=== PATIENT | male | born 1995 | race African-American/Black ===

== ENCOUNTER 2016-07-17 10:38 | Emergency (ER) | payer OTHER ==
[2016-07-17] MEDS ORDERED: ONDANSETRON 4 MG ORAL DISINTEGRATING TAB (S0181) As Ordered ONE (10:59)
--- NOTE | 2016-07-17 11:09 | EDDOCDS ---
Physician Documentation [facility] Name: Nicolás Cordero Age: 21 yrs Sex: Male : 1995 Arrival Date: 07/17/2016 Time: 10:38 Bed TR7 Private MD: [facility] Disposition: 07/17/16 10:58 Discharged to Home/Self Care. Impression: Nausea and vomiting, Diarrhea, unspecified. - Condition is Stable. - Discharge Instructions: Viral Gastroenteritis, [id number]. - Prescriptions for ZOFRAN ODT 4 mg - dissolve 1 tablet by ORAL route 4 times per day As needed do not chew, do not swallow whole; 10 tablet. - Medication Reconciliation, Local Pharmacy Hours form. - Follow up: [facility]; When: 2 - 3 days; Reason: Further diagnostic work-up, Recheck today's complaints, Continuance of care. - Problem is new. - Symptoms are unchanged. Historical: - Allergies: no known allergies; - Home Meds: 1. none - PMHx: none; - PSHx: none; - Social history: Smoking status: Patient states was never smoker of tobacco. No barriers to communication noted, The patient speaks fluent Djiboutian, Speaks appropriately for age. - Family history: Not pertinent. - : The pt / caregiver states he / she is not on anticoagulants. Home medication list is obtained from the patient. - Exposure Risk Screening:: None identified. Vital Signs: 07/17 10:41 Pulse 90; Resp 18; Temp 96.8(T); Pulse Ox 100% on R/A; Weight 73.94 kg / 163.01 lbs nb2 (R); Height 5 ft. 4 in. (162.56 cm) (R); Pain 8/10; 10:41 Body Mass Index 27.98 (73.94 kg, 162.56 cm) nb2 MDM: 10:56 Ondansetron ODT Oral Disintegrating Tablet 4 mg PO once ordered. btw 11:03 Financial registration complete. [email or web address] Administered Medications: 11:00 Drug: Ondansetron ODT 4 mg [ondansetron 4 mg disintegrating tablet (1 tabs)] Route: PO; srm Signatures: Dayana Ardon RN RN Zafar Manzo PA PA btw Carrie Jean RN RN dsf Ivon Lee, Reg Reg [email or web address] MTDD
--- NOTE | 2016-07-17 11:09 | EDDOCDS ---
Nurse's Notes [facility] Name: Nicolás Cordero Age: 21 yrs Sex: Male : 1995 Arrival Date: 07/17/2016 Time: 10:38 Bed TR7 Private MD: [facility] Diagnosis: Nausea and vomiting;Diarrhea, unspecified Presentation: 07/17 10:52 Presenting complaint: Patient states: this morning woke up with n/v/d and abdominal dsf pain. Adult Sepsis Screening: The patient does not have new or worsening altered mentation. Patient's respiratory rate is less than 22. Systolic blood pressure is greater than 100. Patient has a qSOFA score of 0- Negative Sepsis Screen. Suicide/Homicide risk assessment- the patient denies having any suicidal and/or homicidal ideations and does not present with any other emotional, behavioral or mental health complaints. 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 Transition of care: patient was not received from another setting of care. 10:52 Acuity: MICHAELLE Level 3 dsf 10:52 Method Of Arrival: Walkin/Carried/Asstd dsf Triage Assessment: 10:53 General: Appears uncomfortable, Behavior is appropriate for age, cooperative. Pain: dsf Location: abdomen Pain currently is 8 out of 10 on a pain scale. Quality of pain is described as aching, sharp, Pain began this morning. 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 GI: Reports diarrhea, nausea, vomiting, Pain is 8 out of 10 on a pain scale. Historical: - Allergies: no known allergies; - Home Meds: 1. none - PMHx: none; - PSHx: none; - Social history: Smoking status: Patient states was never smoker of tobacco. No barriers to communication noted, The patient speaks fluent South Sudanese, Speaks appropriately for age. - Family history: Not pertinent. - : The pt / caregiver states he / she is not on anticoagulants. Home medication list is obtained from the patient. - Exposure Risk Screening:: None identified. Screenin:06 Screening information is obtained from the patient. Fall risk: No risks identified. srm Assistance ADL's: requires no assistance with activities of daily living. Abuse/DV Screen: The patient / caregiver reports he/she is: not in a situation that causes fear, pain or injury. Nutritional screening: No deficits noted. Advance Directives: There is no active DNR order. home support is adequate. Assessment: 11:06 General: Appears uncomfortable, Behavior is appropriate for age, cooperative. srm Respiratory: No deficits noted. GI: other bile vomitus in his mop bucket Reports nausea, vomiting. Derm: No deficits noted. Vital Signs: 10:41 Pulse 90; Resp 18; Temp 96.8(T); Pulse Ox 100% on R/A; Weight 73.94 kg (R); Height 5 nb2 ft. 4 in. (162.56 cm) (R); Pain 8/10; 10:41 Body Mass Index 27.98 (73.94 kg, 162.56 cm) 2 Vitals: 10:41 Log In Time: July 17, 2016 at 10:33. nb2 ED Course: 10:39 Patient visited by Neyda Ervin. nb2 10:39 [facility] is Private Physician. nb2 10:39 Patient moved to Waiting nb2 10:44 Patient visited by Neyda Ervin. nb2 10:45 Patient moved to Pre RCE nb2 10:52 Triage Initiated dsf 10:54 Zafar Fay PA is PHCP. btw 10:54 Daksha Quinn MD is Attending Physician. btw 10:54 Patient visited by Zafar Fay PA. btw 10:54 Patient moved to Triage 2 dsf 10:58 [facility] is Referral Physician. btw 11:04 Patient moved to 7 ct3 11:06 Patient name changed from Nicolás\S\\S\Cordero\S\ to Nicolás\S\ \S\Cordero. EDMS 11:06 The patient / caregiver is instructed regarding the plan of care and ED course. srm Accompanied by Friend, Patient has correct armband on for positive identification. 11:06 No IV's were initiated during this patient's visit. No procedures done that require srm assistance. Administered Medications: 11:00 Drug: Ondansetron ODT 4 mg [ondansetron 4 mg disintegrating tablet (1 tabs)] Route: PO; srm Order Results: There are currently no results for this order. Outcome: 10:58 Discharge ordered by Provider. btw 11:06 Discharge Assessment: Patient awake, alert and oriented x 3. No cognitive and/or srm functional deficits noted. Patient verbalized understanding of disposition instructions. patient administered narcotics - no. The following High Risk Discharge criteria are identified: None. Discharged to home ambulatory, with friend. Condition: stable. Discharge instructions given to patient, Instructed on discharge instructions, follow up and referral plans. medication usage, diet, Demonstrated understanding of instructions, medications, Pt was receptive of discharge instructions/ teaching. Prescriptions given X 1. No special radiology studies were completed. Property :Personal belongings accompany Pt. 11:08 Patient left the ED. srm Signatures: Dispatcher [employer] EDMS Dayana rAdon, RN RN Zafar Manzo PA PA btw Natty Amezquita, DOCK CLERK DOCK CLERK ct3 Carrie JeanRN RN Neyda Berry nb2 MTDD
--- NOTE | 2016-07-19 12:09 | EDDOCDS ---
Nurse's Notes [facility] Name: Nicolás Cordero Age: 21 yrs Sex: Male : 1995 Arrival Date: 07/17/2016 Time: 10:38 Bed TR7 [facility] Diagnosis: Nausea and vomiting;Diarrhea, unspecified Presentation: 07/17 10:52 Presenting complaint: Patient states: this morning woke up with n/v/d and abdominal dsf pain. Adult Sepsis Screening: The patient does not have new or worsening altered mentation. Patient's respiratory rate is less than 22. Systolic blood pressure is greater than 100. Patient has a qSOFA score of 0- Negative Sepsis Screen. Suicide/Homicide risk assessment- the patient denies having any suicidal and/or homicidal ideations and does not present with any other emotional, behavioral or mental health complaints. 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 Transition of care: patient was not received from another setting of care. 10:52 Acuity: MICHAELLE Level 3 dsf 10:52 Method Of Arrival: Walkin/Carried/Asstd dsf Triage Assessment: 10:53 General: Appears uncomfortable, Behavior is appropriate for age, cooperative. Pain: dsf Location: abdomen Pain currently is 8 out of 10 on a pain scale. Quality of pain is described as aching, sharp, Pain began this morning. 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 GI: Reports diarrhea, nausea, vomiting, Pain is 8 out of 10 on a pain scale. Historical: - Allergies: no known allergies; - Home Meds: 1. none - PMHx: none; - PSHx: none; - Social history: Smoking status: Patient states was never smoker of tobacco. No barriers to communication noted, The patient speaks fluent Tunisian, Speaks appropriately for age. - Family history: Not pertinent. - : The pt / caregiver states he / she is not on anticoagulants. Home medication list is obtained from the patient. - Exposure Risk Screening:: None identified. Screenin:06 Screening information is obtained from the patient. Fall risk: No risks identified. srm Assistance ADL's: requires no assistance with activities of daily living. Abuse/DV Screen: The patient / caregiver reports he/she is: not in a situation that causes fear, pain or injury. Nutritional screening: No deficits noted. Advance Directives: There is no active DNR order. home support is adequate. Assessment: 11:06 General: Appears uncomfortable, Behavior is appropriate for age, cooperative. srm Respiratory: No deficits noted. GI: other bile vomitus in his mop bucket Reports nausea, vomiting. Derm: No deficits noted. Vital Signs: 10:41 Pulse 90; Resp 18; Temp 96.8(T); Pulse Ox 100% on R/A; Weight 73.94 kg (R); Height 5 nb2 ft. 4 in. (162.56 cm) (R); Pain 8/10; 10:41 Body Mass Index 27.98 (73.94 kg, 162.56 cm) 2 Vitals: 10:41 Log In Time: July 17, 2016 at 10:33. nb2 ED Course: 10:39 Patient visited by Neyda Ervin. nb2 10:39 [facility] is Private Physician. nb2 10:39 Patient moved to Waiting nb2 10:44 Patient visited by Neyda Ervin. nb2 10:45 Patient moved to Pre RCE nb2 10:52 Triage Initiated dsf 10:54 Zafar Fay PA is PHCP. btw 10:54 Daksha Quinn MD is Attending Physician. btw 10:54 Patient visited by Zafar Fay PA. btw 10:54 Patient moved to Triage 2 dsf 10:58 [facility] is Referral Physician. btw 11:04 Patient moved to TR7 ct3 11:06 Patient name changed from Nicolás\S\\S\Cordero\S\ to Nicolás\S\ \S\Cordero. EDMS 11:06 The patient / caregiver is instructed regarding the plan of care and ED course. srm Accompanied by Friend, Patient has correct armband on for positive identification. 11:06 No IV's were initiated during this patient's visit. No procedures done that require srm assistance. 11:09 [facility] Payment Agreement was scanned into [employer] and attached to record. [email or web address] 13:55 T-Sheet-- Draft Copy was scanned into [employer] and attached to record. gb Administered Medications: 11:00 Drug: Ondansetron ODT 4 mg [ondansetron 4 mg disintegrating tablet (1 tabs)] Route: PO; srm Order Results: There are currently no results for this order. Outcome: 10:58 Discharge ordered by Provider. btw 11:06 Discharge Assessment: Patient awake, alert and oriented x 3. No cognitive and/or srm functional deficits noted. Patient verbalized understanding of disposition instructions. patient administered narcotics - no. The following High Risk Discharge criteria are identified: None. Discharged to home ambulatory, with friend. Condition: stable. Discharge instructions given to patient, Instructed on discharge instructions, follow up and referral plans. medication usage, diet, Demonstrated understanding of instructions, medications, Pt was receptive of discharge instructions/ teaching. Prescriptions given X 1. No special radiology studies were completed. Property :Personal belongings accompany Pt. 11:08 Patient left the ED. srm Signatures: Dispatcher [employer] EDMS Dayana Ardon, RN RN Jacquelin Young, Reg Reg gb Zafar Fay PA PA btw Natty Amezquita, PHYSICAL THERAPIST TECHNICIAN PHYSICAL THERAPIST TECHNICIAN ct3 Carrie JeanRN RN Ivon Youssef, Reg Reg ks16 Neyda Ervin2 Chart Complete JUNE
--- NOTE | 2016-07-19 12:09 | EDDOCDS ---
Physician Documentation [facility] Name: Nicolás Cordero Age: 21 yrs Sex: Male : 1995 Arrival Date: 07/17/2016 Time: 10:38 Bed TR7 [facility] Disposition: 07/17/16 10:58 Discharged to Home/Self Care. Impression: Nausea and vomiting, Diarrhea, unspecified. - Condition is Stable. - Discharge Instructions: Viral Gastroenteritis, [id number]. - Prescriptions for ZOFRAN ODT 4 mg - dissolve 1 tablet by ORAL route 4 times per day As needed do not chew, do not swallow whole; 10 tablet. - Medication Reconciliation, Local Pharmacy Hours form. - [facility]; When: 2 - 3 days; Reason: Further diagnostic work-up, Recheck today's complaints, Continuance of care. - Problem is new. - Symptoms are unchanged. Historical: - Allergies: no known allergies; - Home Meds: 1. none - PMHx: none; - PSHx: none; - Social history: Smoking status: Patient states was never smoker of tobacco. No barriers to communication noted, The patient speaks fluent Barbadian, Speaks appropriately for age. - Family history: Not pertinent. - : The pt / caregiver states he / she is not on anticoagulants. Home medication list is obtained from the patient. - Exposure Risk Screening:: None identified. Vital Signs: 07/17 10:41 Pulse 90; Resp 18; Temp 96.8(T); Pulse Ox 100% on R/A; Weight 73.94 kg / 163.01 lbs nb2 (R); Height 5 ft. 4 in. (162.56 cm) (R); Pain 8/10; 10:41 Body Mass Index 27.98 (73.94 kg, 162.56 cm) nb2 MDM: 10:56 Ondansetron ODT Oral Disintegrating Tablet 4 mg PO once ordered. btw 11:03 Financial registration complete. [email or web address] 11:09 [facility] Payment Agreement was scanned into [employer] and attached to record. [email or web address] 13:55 T-Sheet-- Draft Copy was scanned into [employer] and attached to record. gb Administered Medications: 11:00 Drug: Ondansetron ODT 4 mg [ondansetron 4 mg disintegrating tablet (1 tabs)] Route: PO; srm Signatures: Dayana Ardon RN RN srm Jacquelin Parr, Reg Reg gb Zafar Fay PA PA btw Fuller, Desiree, RN RN dsf Ivon Lee, Reg Reg ks16 The chart was reviewed and I authenticate all verbal orders and agree with the evaluation and treatment provided.Attachments: 11:09 [facility] Payment Agreement [email or web address] 13:55 T-Sheet-- Draft Copy gb Chart Complete MTDD
--- NOTE | 2016-07-19 12:09 | EDDOCDS ---
Physician Documentation [facility] Name: Nicolás Cordero Age: 21 yrs Sex: Male : 1995 Arrival Date: 07/17/2016 Time: 10:38 Bed TR7 [facility] Disposition: 07/17/16 10:58 Discharged to Home/Self Care. Impression: Nausea and vomiting, Diarrhea, unspecified. - Condition is Stable. - Discharge Instructions: Viral Gastroenteritis, [id number]. - Prescriptions for ZOFRAN ODT 4 mg - dissolve 1 tablet by ORAL route 4 times per day As needed do not chew, do not swallow whole; 10 tablet. - Medication Reconciliation, Local Pharmacy Hours form. - [facility]; When: 2 - 3 days; Reason: Further diagnostic work-up, Recheck today's complaints, Continuance of care. - Problem is new. - Symptoms are unchanged. Historical: - Allergies: no known allergies; - Home Meds: 1. none - PMHx: none; - PSHx: none; - Social history: Smoking status: Patient states was never smoker of tobacco. No barriers to communication noted, The patient speaks fluent [place] Verdean, Speaks appropriately for age. - Family history: Not pertinent. - : The pt / caregiver states he / she is not on anticoagulants. Home medication list is obtained from the patient. - Exposure Risk Screening:: None identified. Vital Signs: 07/17 10:41 Pulse 90; Resp 18; Temp 96.8(T); Pulse Ox 100% on R/A; Weight 73.94 kg / 163.01 lbs nb2 (R); Height 5 ft. 4 in. (162.56 cm) (R); Pain 8/10; 10:41 Body Mass Index 27.98 (73.94 kg, 162.56 cm) nb2 MDM: 10:56 Ondansetron ODT Oral Disintegrating Tablet 4 mg PO once ordered. btw 11:03 Financial registration complete. [email or web address] 11:09 [facility] Payment Agreement was scanned into [employer] and attached to record. [email or web address] 13:55 T-Sheet-- Draft Copy was scanned into [employer] and attached to record. gb Administered Medications: 11:00 Drug: Ondansetron ODT 4 mg [ondansetron 4 mg disintegrating tablet (1 tabs)] Route: PO; srm Signatures: Dayana Ardon RN RN srm Jacquelin Parr, Reg Reg gb Zafar Fay PA PA btw Fuller, Desiree, RN RN dsf Ivon Lee, Reg Reg ks16 The chart was reviewed and I authenticate all verbal orders and agree with the evaluation and treatment provided.Attachments: 11:09 [facility] Payment Agreement [email or web address] 13:55 T-Sheet-- Draft Copy gb Chart Complete MTDD
== END 2016-07-17 11:08 | disposition home or self-care (01) ==
LOC: M ED 10:38
DX: R11.2 Nausea with vomiting, unspecified (principal); R19.7 Diarrhea, unspecified

== ENCOUNTER 2017-06-02 12:20 | Emergency (ER) | payer OTHER | END 2017-06-02 13:09 | disposition home or self-care (01) | LOC: M ED 12:20 | DX: L72.3 Sebaceous cyst (principal) | CPT/HCPCS: 99282 ==

== ENCOUNTER 2017-11-06 14:24 | Emergency (ER) | payer OTHER ==
[2017-11-06] MEDS: NS 1,000 ML IV (16:04)
[2017-11-06] MEDS: ONDANSETRON 4MG/2ML VIAL (J2405) IV ×2 (16:04→17:59)
[2017-11-06 16:30] LABS: BASO % 0.1 % (0.0-1.0); HEMATOCRIT 48.6 % (42.0-52.0); HEMOGLOBIN 16.7 g/dl (13.5-17.5); IMMATURE GRANULOCYTE % 0.2 % (0-3.0); LYMPH # 0.3 10^3/uL (1.5-6.5); LYMPH % 3.4 % (24.0-44.0); MEAN CORPUSCULAR HEMOGLOBIN 26.1 pg (27.0-33.0); MEAN CORPUSCULAR HGB CONC 34.4 g/dl (32.0-36.5); MEAN CORPUSCULAR VOLUME 76.1 fl (80.0-96.0); MONO # 0.3 10^3/uL (0.0-0.8); MONO % 3.9 % (0.0-5.0); NEUTROPHILS # 8.1 10^3/uL (1.8-7.7); NEUTROPHILS % 92.4 % (36.0-66.0); PLATELET COUNT, AUTOMATED 227 10^3/uL (150-450); RED BLOOD COUNT 6.39 10^6/uL (4.30-6.10); RED CELL DISTRIBUTION WIDTH 13.2 % (11.5-14.5); WHITE BLOOD COUNT 8.8 10^3/uL (4.0-10.0)
[2017-11-06 16:34] LABS: ALBUMIN 4.5 GM/DL (3.2-5.2); ALBUMIN/GLOBULIN RATIO 1.22 (1.00-1.93); ALKALINE PHOSPHATASE 129 U/L (45-117); ALT/SGPT 55 U/L (12-78); AMYLASE 103 U/L (25-115); ANION GAP 9 MEQ/L (8-16); AST/SGOT 31 U/L (7-37); BILIRUBIN,DIRECT 0.2 MG/DL (0.0-0.2); BILIRUBIN,TOTAL 0.8 MG/DL (0.2-1.0); BLOOD UREA NITROGEN 16 MG/DL (7-18); CALCIUM LEVEL 9.1 MG/DL (8.5-10.1); CARBON DIOXIDE LEVEL 25 MEQ/L (21-32); CHLORIDE LEVEL 104 MEQ/L (98-107); CREATININE FOR GFR 1.16 MG/DL (0.70-1.30); GLOMERULAR FILTRATION RATE > 60.0 (>60); GLUCOSE, FASTING 91 MG/DL (70-100); LIPASE 165 U/L (73-393); POTASSIUM SERUM 4.3 MEQ/L (3.5-5.1); SODIUM LEVEL 138 MEQ/L (136-145); TOTAL PROTEIN 8.2 GM/DL (6.4-8.2)
[2017-11-06 17:29] LABS: KETONE, URINE AUTO RFX NEGATIVE (NEGATIVE); LEUKOCYTE ESTERASE UR AUTO RFX NEGATIVE (NEGATIVE); MUCUS, URINE RFX SMALL (NEGATIVE); NITRITE, URINE AUTO RFX NEGATIVE (NEGATIVE); RBC, URINE AUTO RFX 2 /HPF (0-3); SPECIFIC GRAVITY UR AUTO RFX 1.029 (1.002-1.035); SQUAM EPITHELIAL CELL UR AURFX 0 /HPF (0-6); WBC, URINE AUTO RFX 1 /HPF (0-3)
[2017-11-06] MEDS: ACETAMINOPHEN TAB 650MG DOSE (2X325MG) PO (18:00)
== END 2017-11-06 18:15 | disposition home or self-care (01) ==
LOC: M ED 14:24
DX: R11.2 Nausea with vomiting, unspecified (principal); R19.7 Diarrhea, unspecified; Z20.828 Contact with and (suspected) exposure to other viral communicable diseases
CPT/HCPCS: J2405